=== PATIENT | male | born 1950 | race Caucasian/White ===

== ENCOUNTER 2018-01-10 10:28 | Inpatient (IN) | payer MEDICARE, OTHER ==
[~2018-01-10] VITALS: Ht 177.8 cm; Wt 71.0 kg
[~2018-01-10 10:28] MED LIST: ACIDOPHILUS100 MG PO; ASPI-1265 PO; CARB15DR51 OT; CARV-50 PO; CHOL40002 PO; CYA500T PO; CYAN100061 IM; CYCL-394 PO; FOLI-43 PO; GABA-330 PO; LANTUS SUBCUT; MAGN400C PO; MECL12.5 PO; METF500T PO; NIAC500C12 PO; NITR0.4T48 SL; OMEP-84 PO; ROSU40TA PO; TRAZ-89 PO; ZOL50T PO
[2018-01-10] MEDS ORDERED: nitroGLYCERIN 0.4mg/hour patch TD ONE (10:35)
[2018-01-10] MEDS ORDERED: aspirin 81mg tab.chew PO ONE (10:35)
[2018-01-10 10:49] LABS: BASOPHILS # (AUTO) 0.1 X10'3 (0-0.2); BASOPHILS % (AUTO) 0.8 % (0-1); EOSINOPHILS # (AUTO) 0.4 X10'3 (0-0.9); EOSINOPHILS % (AUTO) 3.1 % (0-6); HEMATOCRIT 38.9 % (42.0-52.0); HEMOGLOBIN 12.5 g/dl (14.0-17.9); LYMPHOCYTES # (AUTO) 3.4 X10'3 (1.1-4.8); LYMPHOCYTES % (AUTO) 25.7 % (21-51); MEAN CORPUSCULAR HEMOGLOBIN 25.2 PG (27.0-31.0); MEAN CORPUSCULAR VOLUME 78.6 FL (78-98); MEAN PLATELET VOLUME 11.5 FL (7.4-10.4); MONOCYTES # (AUTO) 0.5 X10'3 (0-0.9); MONOCYTES % (AUTO) 3.5 % (2-12); NEUTROPHILS # (AUTO) 8.8 X10'3 (1.8-7.7); NEUTROPHILS % (AUTO) 66.9 % (42-75); PLATELET COUNT 205 X10'3 (140-440); RED BLOOD COUNT 4.95 X10'6 (4.70-6.10); RED CELL DISTRIBUTION WIDTH 17.4 % (11.5-14.5); WHITE BLOOD COUNT 13.2 X10'3 (4.5-11.0)
[2018-01-10 11:00] LABS: D-DIMER 3.19 MG/L FEU (0-0.50); PARTIAL THROMBOPLASTIN TIME 25 SECONDS (22-32); PROTHROMBIN TIME 10.2 SECONDS (9.0-12.0)
[2018-01-10 11:01] LABS: ABG BASE EXCESS -7.2 mmol/L (-2.0-3.0); ABG HCO3 20.6 mmol/L (22.0-26.0); ABG OXYGEN SATURATION 99.3 % (95-98); ABG PCO2 (T) 48.8 mmHg (35.0-48.0); ABG PH (T) 7.237 (7.350-7.450); FCOHb 0.5 % (0.5-1.5); FMetHb 0.1 % (0.3-1.12); FO2Hb 98.7 % (94-100); MINUTE VOLUME 14 L/min; PATIENT TEMPERATURE 36.1; RESPIRATORY RATE 16 b/min; RESPIRATORY RATE (OBSERVED) 31 b/min; TIDAL VOLUME 509 mL; TOTAL HEMOGLOBIN 12.6 G/dl (14.0-18.0)
[2018-01-10 11:02] LABS: ALANINE AMINOTRANSFERASE 32 U/L (12-78); ALBUMIN 3.7 G/DL (3.4-5.0); ALBUMIN/GLOBULIN RATIO 0.8 (1.1-1.5); ALKALINE PHOSPHATASE 169 IU/L (46-116); ANION GAP 11 (8-16); ASPARTATE AMINO TRANSFERASE 31 U/L (10-37); BILIRUBIN,TOTAL 0.4 MG/DL (0.1-1.0); BLOOD UREA NITROGEN 19 MG/DL (7-18); BUN/CREATININE RATIO 12.4 (5.4-32.0); CALCIUM 9.5 MG/DL (8.5-10.1); CHLORIDE 103 MMOL/L (99-107); CREATININE 1.53 MG/DL (0.60-1.10); GLUCOSE 335 MG/DL (70-104); SODIUM 138 MMOL/L (135-145); TOTAL CARBON DIOXIDE 23.9 MMOL/L (24-32); TOTAL PROTEIN 8.3 G/DL (6.4-8.2); eGFR 45 ML/MIN
[2018-01-10] MEDS ORDERED: furosemide 40mg/4ml inj IV ONE (11:25)
[2018-01-10] MEDS ORDERED: HYDROcodone/acetaminophen 10/325mg tab PO PRN (12:10)
[2018-01-10] MEDS ORDERED: acetaminophen 325mg tablet PO PRN (12:10)
[2018-01-10] MEDS ORDERED: ondansetron/PF 4mg/2ml inj IV PRN (12:10)
[2018-01-10] MEDS ORDERED: albuterol 2.5 MG/3 ML nebule NEB PRN (12:10)
[2018-01-10] MEDS ORDERED: MESSAGE TO PHARMACY PO ONE (12:10)
[2018-01-10] MEDS ORDERED: morphine 4 MG/ML inj SYRINge IV PRN ×2 (12:10)
[2018-01-10] MEDS ORDERED: HYDROcodone/acetaminophen 5mg/325mg tablet PO PRN (12:10)
[2018-01-10] MEDS ORDERED: dextrose ORAL solution 15 GM/59 ML bottle PO PRN ×2 (12:10)
[2018-01-10] MEDS ORDERED: mag hydrox/Alum hydrox/simeth 30ml oral suspension PO PRN (12:10)
[2018-01-10] MEDS ORDERED: magnesium hydroxide 30ml (MOM) UD suspension PO PRN (12:10)
[2018-01-10] MEDS ORDERED: glucagon, human recombinant 1mg kit SUBCUT PRN (12:10)
[2018-01-10] MEDS ORDERED: dextrose 50%-water 50ml dispensing syringe IV PRN ×2 (12:10)
[2018-01-10] MEDS: nitroGLYCERIN 0.4mg/hour patch TD SCH (12:20)
[2018-01-10 12:30] LABS: ABG BASE EXCESS -3.4 mmol/L (-2.0-3.0); ABG HCO3 22.4 mmol/L (22.0-26.0); ABG OXYGEN SATURATION 98.2 % (95-98); ABG PCO2 (T) 41.1 mmHg (35.0-48.0); ABG PH (T) 7.349 (7.350-7.450); ABG PO2 (T) 131.9 mmHg (83-108); ALLEN'S TEST Positive; FCOHb 0.8 % (0.5-1.5); FMetHb 0.1 % (0.3-1.12); FO2Hb 97.3 % (94-100); MINUTE VOLUME 18 L/min; PATIENT TEMPERATURE 36.1; RESPIRATORY RATE 12 b/min; RESPIRATORY RATE (OBSERVED) 20 b/min; TIDAL VOLUME 833 mL; TOTAL HEMOGLOBIN 12.3 G/dl (14.0-18.0)
[2018-01-10 14:40] VITALS: BP 178/88
[2018-01-10 14:50] LABS: HEMOGLOBIN A1C 8.1 % (4.5-6.2)
[2018-01-10 17:10] VITALS: BP 164/89
[2018-01-10] MEDS ORDERED: enoxaparin 80mg/0.8ml syringe SUBCUT ONE (17:10)
[2018-01-10] MEDS: carVEDilol 12.5mg tablet PO SCH ×2 (17:36→19:25)
[2018-01-10 17:37] VITALS: BP 164/89
[2018-01-10] MEDS: insulin Lispro (HumaLOG) vial - multi-dose SQ SCH (18:50)
[2018-01-10 19:00] VITALS: BP 156/91
[2018-01-10] MEDS: furosemide 40mg/4ml inj IV SCH (19:22)
[2018-01-10] MEDS ORDERED: insulin glargine (Lantus) pen - multi-dose SQ SCH (21:00)
[2018-01-10 23:00] VITALS: BP 120/47
[2018-01-11 03:00] VITALS: BP 143/60
[2018-01-11 06:00] VITALS: BP 151/65
[2018-01-11 06:09] LABS: BASOPHILS % (AUTO) 0.2 % (0-1); EOSINOPHILS # (AUTO) 0.1 X10'3 (0-0.9); EOSINOPHILS % (AUTO) 2.3 % (0-6); HEMATOCRIT 31.4 % (42.0-52.0); HEMOGLOBIN 10.2 g/dl (14.0-17.9); LYMPHOCYTES # (AUTO) 1.1 X10'3 (1.1-4.8); LYMPHOCYTES % (AUTO) 17.2 % (21-51); MEAN CORPUSCULAR HEMOGLOBIN 25.2 PG (27.0-31.0); MEAN CORPUSCULAR HGB CONC 32.5 % (33.0-36.5); MEAN CORPUSCULAR VOLUME 77.7 FL (78-98); MEAN PLATELET VOLUME 11.1 FL (7.4-10.4); MONOCYTES # (AUTO) 0.3 X10'3 (0-0.9); MONOCYTES % (AUTO) 5.7 % (2-12); NEUTROPHILS # (AUTO) 4.6 X10'3 (1.8-7.7); NEUTROPHILS % (AUTO) 74.6 % (42-75); PLATELET COUNT 119 X10'3 (140-440); RED BLOOD COUNT 4.04 X10'6 (4.70-6.10); RED CELL DISTRIBUTION WIDTH 17.5 % (11.5-14.5); WHITE BLOOD COUNT 6.1 X10'3 (4.5-11.0)
[2018-01-11 06:31] LABS: ALBUMIN 3.2 G/DL (3.4-5.0); ANION GAP 8 (8-16); BLOOD UREA NITROGEN 23 MG/DL (7-18); BUN/CREATININE RATIO 15.4 (5.4-32.0); CALCIUM 9.3 MG/DL (8.5-10.1); CHLORIDE 104 MMOL/L (99-107); CREATININE 1.49 MG/DL (0.60-1.10); GLUCOSE 104 MG/DL (70-104); POTASSIUM 3.7 MMOL/L (3.5-5.1); SODIUM 139 MMOL/L (135-145); TOTAL CARBON DIOXIDE 27.3 MMOL/L (24-32); eGFR 47 ML/MIN
[2018-01-11 06:48] LABS: PLATELET ESTIMATE DECREASED
[2018-01-11 06:49] LABS: LARGE PLATELETS FEW
[2018-01-11] MEDS: furosemide 40mg/4ml inj IV SCH ×2 (08:21→20:15)
[2018-01-11] MEDS: carVEDilol 12.5mg tablet PO SCH ×2 (08:23→20:12)
[2018-01-11] MEDS: nitroGLYCERIN 0.4mg/hour patch TD SCH (08:24)
[2018-01-11] MEDS: insulin Lispro (HumaLOG) vial - multi-dose SQ SCH ×3 (08:27→18:56)
[2018-01-11 11:00] VITALS: BP 125/61
[2018-01-11] MEDS ORDERED: meclizine 12.5mg tablet PO PRN (11:30)
[2018-01-11] MEDS: enoxaparin 40mg/0.4ml syringe SUBCUT SCH (12:14)
[2018-01-11] MEDS ORDERED: POTA20TA19 PO (12:55)
[2018-01-11] MEDS ORDERED: LISI2.5T2 PO (12:55)
[2018-01-11] MEDS ORDERED: DONE10TA6 PO (12:55)
[2018-01-11] MEDS: gabapentin 400mg capsule PO SCH ×2 (13:23→20:12)
[2018-01-11 15:00] VITALS: BP 123/61
[2018-01-11 19:00] VITALS: BP 137/55
[2018-01-11] MEDS: magnesium oxide 400mg tablet PO SCH (20:12)
[2018-01-11] MEDS: lactobacillus rhamnosus 10,000 MMU CELLS/CAPSULE PO SCH (20:12)
[2018-01-11] MEDS: pantoprazole 40mg Tablet.DR PO SCH (20:28)
[2018-01-11] MEDS: insulin glargine (Lantus) pen - multi-dose SQ SCH (20:48)
[2018-01-11] MEDS ORDERED: carbamide peroxide 15ml bottle EACH EAR SCH (21:00)
[2018-01-11] MEDS: niacin 500mg timed-release capsule PO SCH (21:29)
[2018-01-11 23:00] VITALS: BP 133/69
[2018-01-11] MEDS: traZODone 50mg tablet PO PRN (23:22)
[2018-01-12 03:00] VITALS: BP 143/69
[2018-01-12 05:43] LABS: BASOPHILS % (AUTO) 0.3 % (0-1); EOSINOPHILS # (AUTO) 0.1 X10'3 (0-0.9); HEMATOCRIT 32.8 % (42.0-52.0); LYMPHOCYTES # (AUTO) 1.3 X10'3 (1.1-4.8); LYMPHOCYTES % (AUTO) 25.8 % (21-51); MEAN CORPUSCULAR HEMOGLOBIN 25.6 PG (27.0-31.0); MEAN CORPUSCULAR HGB CONC 33.4 % (33.0-36.5); MEAN CORPUSCULAR VOLUME 76.5 FL (78-98); MEAN PLATELET VOLUME 10.7 FL (7.4-10.4); MONOCYTES # (AUTO) 0.4 X10'3 (0-0.9); NEUTROPHILS # (AUTO) 3.4 X10'3 (1.8-7.7); NEUTROPHILS % (AUTO) 64.9 % (42-75); PLATELET COUNT 110 X10'3 (140-440); RED BLOOD COUNT 4.28 X10'6 (4.70-6.10); RED CELL DISTRIBUTION WIDTH 17.4 % (11.5-14.5); WHITE BLOOD COUNT 5.2 X10'3 (4.5-11.0)
[2018-01-12 06:00] VITALS: BP 126/63
[2018-01-12 06:10] LABS: ALBUMIN 3.3 G/DL (3.4-5.0); ANION GAP 10 (8-16); BLOOD UREA NITROGEN 31 MG/DL (7-18); BUN/CREATININE RATIO 18.2 (5.4-32.0); CALCIUM 9.5 MG/DL (8.5-10.1); CHLORIDE 102 MMOL/L (99-107); GLUCOSE 93 MG/DL (70-104); POTASSIUM 3.6 MMOL/L (3.5-5.1); SODIUM 141 MMOL/L (135-145); TOTAL CARBON DIOXIDE 28.8 MMOL/L (24-32); eGFR 40 ML/MIN
[2018-01-12 06:26] LABS: LARGE PLATELETS FEW; PLATELET ESTIMATE DECREASED
[2018-01-12] MEDS: carVEDilol 12.5mg tablet PO SCH ×2 (09:01→19:23)
[2018-01-12] MEDS: lactobacillus rhamnosus 10,000 MMU CELLS/CAPSULE PO SCH ×2 (09:01→19:23)
[2018-01-12] MEDS: atorvastatin 20mg tablet PO SCH (09:03)
[2018-01-12] MEDS: gabapentin 400mg capsule PO SCH ×3 (09:03→21:29)
[2018-01-12] MEDS: pantoprazole 40mg Tablet.DR PO SCH (09:03)
[2018-01-12] MEDS: magnesium oxide 400mg tablet PO SCH ×2 (09:03→19:23)
[2018-01-12] MEDS: multivitamins, therapeutics tablet PO SCH (09:04)
[2018-01-12] MEDS: sertraline 50mg tablet PO SCH (09:04)
[2018-01-12] MEDS: insulin glargine (Lantus) pen - multi-dose SQ SCH ×2 (09:09→21:21)
[2018-01-12] MEDS: enoxaparin 40mg/0.4ml syringe SUBCUT SCH (09:10)
[2018-01-12] MEDS: nitroGLYCERIN 0.4mg/hour patch TD SCH (09:11)
[2018-01-12 11:00] VITALS: BP 119/57
[2018-01-12] MEDS: insulin Lispro (HumaLOG) vial - multi-dose SQ SCH ×2 (12:49→18:59)
[2018-01-12 15:00] VITALS: BP 110/65
[2018-01-12 19:00] VITALS: BP 106/46
[2018-01-12] MEDS ORDERED: lisinopril 2.5mg tablet PO SCH (21:00)
[2018-01-12] MEDS: niacin 500mg timed-release capsule PO SCH (21:21)
[2018-01-12 23:00] VITALS: BP 141/60
[2018-01-12] MEDS: traZODone 50mg tablet PO PRN (23:20)
[2018-01-13 03:00] VITALS: BP 128/64
[2018-01-13 06:02] LABS: BASOPHILS % (AUTO) 0.3 % (0-1); EOSINOPHILS # (AUTO) 0.1 X10'3 (0-0.9); EOSINOPHILS % (AUTO) 2.4 % (0-6); HEMATOCRIT 32.4 % (42.0-52.0); HEMOGLOBIN 10.6 g/dl (14.0-17.9); LYMPHOCYTES # (AUTO) 1.1 X10'3 (1.1-4.8); LYMPHOCYTES % (AUTO) 23.8 % (21-51); MEAN CORPUSCULAR HEMOGLOBIN 25.3 PG (27.0-31.0); MEAN CORPUSCULAR HGB CONC 32.7 % (33.0-36.5); MEAN CORPUSCULAR VOLUME 77.3 FL (78-98); MEAN PLATELET VOLUME 10.9 FL (7.4-10.4); MONOCYTES # (AUTO) 0.3 X10'3 (0-0.9); MONOCYTES % (AUTO) 6.9 % (2-12); NEUTROPHILS # (AUTO) 3.2 X10'3 (1.8-7.7); NEUTROPHILS % (AUTO) 66.6 % (42-75); PLATELET COUNT 113 X10'3 (140-440); RED BLOOD COUNT 4.19 X10'6 (4.70-6.10); RED CELL DISTRIBUTION WIDTH 17.3 % (11.5-14.5); WHITE BLOOD COUNT 4.8 X10'3 (4.5-11.0)
[2018-01-13 06:10] LABS: ALBUMIN 3.1 G/DL (3.4-5.0); ANION GAP 9 (8-16); BLOOD UREA NITROGEN 36 MG/DL (7-18); BUN/CREATININE RATIO 20.2 (5.4-32.0); CALCIUM 9.3 MG/DL (8.5-10.1); CHLORIDE 101 MMOL/L (99-107); CREATININE 1.78 MG/DL (0.60-1.10); GLUCOSE 165 MG/DL (70-104); POTASSIUM 3.6 MMOL/L (3.5-5.1); SODIUM 136 MMOL/L (135-145); eGFR 38 ML/MIN
[2018-01-13 06:34] LABS: PLATELET ESTIMATE DECREASED
[2018-01-13 06:35] LABS: LARGE PLATELETS FEW
[2018-01-13 07:00] VITALS: BP 113/59
[2018-01-13] MEDS: carVEDilol 12.5mg tablet PO SCH (07:07)
[2018-01-13] MEDS: multivitamins, therapeutics tablet PO SCH (07:07)
[2018-01-13] MEDS: atorvastatin 20mg tablet PO SCH (07:07)
[2018-01-13] MEDS: magnesium oxide 400mg tablet PO SCH (07:07)
[2018-01-13] MEDS: nitroGLYCERIN 0.4mg/hour patch TD SCH (07:07)
[2018-01-13] MEDS: gabapentin 400mg capsule PO SCH ×2 (07:08→13:00)
[2018-01-13] MEDS: lactobacillus rhamnosus 10,000 MMU CELLS/CAPSULE PO SCH (07:08)
[2018-01-13] MEDS: pantoprazole 40mg Tablet.DR PO SCH (07:08)
[2018-01-13] MEDS: sertraline 50mg tablet PO SCH (07:08)
[2018-01-13] MEDS: enoxaparin 40mg/0.4ml syringe SUBCUT SCH (07:09)
[2018-01-13] MEDS: insulin glargine (Lantus) pen - multi-dose SQ SCH (07:18)
[2018-01-13] MEDS ORDERED: furosemide 20MG tablet PO SCH (08:00)
[2018-01-13] MEDS: insulin Lispro (HumaLOG) vial - multi-dose SQ SCH ×2 (08:15→13:21)
[2018-01-13] MEDS ORDERED: acetaminophen 325mg tablet PO PRN (10:55)
[2018-01-13 11:00] VITALS: BP 116/49
[2018-01-13] MEDS ORDERED: FURO20TA4 PO (11:15)
== END 2018-01-13 13:55 | disposition home or self-care (01) | DRG 291 ==
LOC: ER 10:28 → ED HOLD 12:10 → PCU 3S 14:35
PROVIDERS: ADMIT Internal Medicine; ATTEND Internal Medicine
PROC: 5A09357 Assistance with Respiratory Ventilation, Less than 24 Consecutive Hours, Continuous Positive Airway Pressure (ICD-10-PCS; principal; 2018-01-10)
DX: I13.0 Hypertensive heart and chronic kidney disease with heart failure and stage 1 through stage 4 chronic kidney disease, or unspecified chronic kidney disease (principal); I50.43 Acute on chronic combined systolic (congestive) and diastolic (congestive) heart failure; J96.02 Acute respiratory failure with hypercapnia; N17.9 Acute kidney failure, unspecified; R71.0 Precipitous drop in hematocrit; I42.9 Cardiomyopathy, unspecified; N18.9 Chronic kidney disease, unspecified; M54.2 Cervicalgia; I35.0 Nonrheumatic aortic (valve) stenosis; E11.42 Type 2 diabetes mellitus with diabetic polyneuropathy; F41.9 Anxiety disorder, unspecified; E11.51 Type 2 diabetes mellitus with diabetic peripheral angiopathy without gangrene; E11.65 Type 2 diabetes mellitus with hyperglycemia; E78.00 Pure hypercholesterolemia, unspecified; E78.5 Hyperlipidemia, unspecified; G47.00 Insomnia, unspecified; I25.10 Atherosclerotic heart disease of native coronary artery without angina pectoris; I25.2 Old myocardial infarction; K21.9 Gastro-esophageal reflux disease without esophagitis; F32.9 Major depressive disorder, single episode, unspecified; G89.29 Other chronic pain; Z95.0 Presence of cardiac pacemaker; Z95.1 Presence of aortocoronary bypass graft; Z79.899 Other long term (current) drug therapy; Z79.4 Long term (current) use of insulin; Z79.82 Long term (current) use of aspirin; Z85.820 Personal history of malignant melanoma of skin; Z86.711 Personal history of pulmonary embolism; Z87.891 Personal history of nicotine dependence; Z83.3 Family history of diabetes mellitus
CPT/HCPCS: 36415; 36600; 71045; 80048; 80053; 82803; 82948; 83036; 83880; 84484; 85018; 85025; 85379; 85610; 85730; 87070; 93005; 93306; 94640; 94660; 94760; 96374; 97116; 97162; 97530; 99291; J1650; J1815; J1940

== ENCOUNTER 2018-02-04 10:00 | Inpatient (IN) | payer MEDICARE, OTHER ==
[~2018-02-04] VITALS: Ht 167.6 cm; Wt 71.2 kg
[2018-02-04] VITALS (7 sets, daily range): BP systolic 115–155; BP diastolic 54–68
[2018-02-04] MEDS: K, MAG and/or Phos replacement - Verify level? MC SCH (08:00)
[~2018-02-04 10:00] MED LIST changes: -CARB15DR51 OT; +DONE10TA6 PO; +FURO20TA4 PO; +LISI2.5T2 PO; +POTA20TA19 PO
[2018-02-04] MEDS ORDERED: nitroGLYCERIN 0.4mg SUBLingual tab SL ONE (10:08)
[2018-02-04] MEDS: nitroGLYCERIN 0.4mg SUBLingual tab SL PRN ×2 (10:12→10:13)
[2018-02-04] MEDS: nitroGLYCERIN-Tridil 50MG/D5W 250 ML IV PRN ×4 (10:21→10:55)
[2018-02-04 10:25] LABS: BASOPHILS # (AUTO) 0.1 X10'3 (0-0.2); BASOPHILS % (AUTO) 0.4 % (0-1); EOSINOPHILS # (AUTO) 0.5 X10'3 (0-0.9); EOSINOPHILS % (AUTO) 3.1 % (0-6); HEMATOCRIT 41.3 % (42.0-52.0); HEMOGLOBIN 13.1 g/dl (14.0-17.9); LYMPHOCYTES # (AUTO) 3.9 X10'3 (1.1-4.8); MEAN CORPUSCULAR HEMOGLOBIN 25.7 PG (27.0-31.0); MEAN CORPUSCULAR HGB CONC 31.8 % (33.0-36.5); MEAN CORPUSCULAR VOLUME 80.7 FL (78-98); MEAN PLATELET VOLUME 11.6 FL (7.4-10.4); MONOCYTES # (AUTO) 0.8 X10'3 (0-0.9); MONOCYTES % (AUTO) 4.9 % (2-12); NEUTROPHILS # (AUTO) 11.1 X10'3 (1.8-7.7); NEUTROPHILS % (AUTO) 67.6 % (42-75); PLATELET COUNT 216 X10'3 (140-440); RED BLOOD COUNT 5.11 X10'6 (4.70-6.10); RED CELL DISTRIBUTION WIDTH 18.1 % (11.5-14.5); WHITE BLOOD COUNT 16.4 X10'3 (4.5-11.0)
[2018-02-04 10:35] LABS: INR 0.9 INR; PARTIAL THROMBOPLASTIN TIME 23 SECONDS (22-32); PROTHROMBIN TIME 9.6 SECONDS (9.0-12.0)
[2018-02-04 10:39] LABS: ALANINE AMINOTRANSFERASE 38 U/L (12-78); ALBUMIN 3.9 G/DL (3.4-5.0); ALBUMIN/GLOBULIN RATIO 0.8 (1.1-1.5); ALKALINE PHOSPHATASE 168 IU/L (46-116); ANION GAP 12 (8-16); ASPARTATE AMINO TRANSFERASE 43 U/L (10-37); BILIRUBIN,TOTAL 0.4 MG/DL (0.1-1.0); BLOOD UREA NITROGEN 24 MG/DL (7-18); BUN/CREATININE RATIO 14.5 (5.4-32.0); CALCIUM 9.2 MG/DL (8.5-10.1); CHLORIDE 102 MMOL/L (99-107); CREATININE 1.65 MG/DL (0.60-1.10); GLUCOSE 277 MG/DL (70-104); POTASSIUM 4.9 MMOL/L (3.5-5.1); SODIUM 137 MMOL/L (135-145); TOTAL CARBON DIOXIDE 23.5 MMOL/L (24-32); TOTAL PROTEIN 8.5 G/DL (6.4-8.2); eGFR 42 ML/MIN
[2018-02-04 10:47] LABS: MAGNESIUM 2.2 MG/DL (1.5-2.4)
[2018-02-04] MEDS ORDERED: magnesium Cl slow-release 64mg tablet PO PRN (11:35)
[2018-02-04] MEDS ORDERED: ondansetron/PF 4mg/2ml inj IV PRN (11:35)
[2018-02-04] MEDS ORDERED: Neutra Phos packet PO PRN (11:35)
[2018-02-04] MEDS ORDERED: magnesium hydroxide 30ml (MOM) UD suspension PO PRN (11:35)
[2018-02-04] MEDS ORDERED: acetaminophen 325mg tablet PO PRN (11:35)
[2018-02-04] MEDS ORDERED: sodium phosphate inj. 15 MMOL in dextrose 5%-water 150 ML IV PRN (11:35)
[2018-02-04] MEDS ORDERED: magnesium 1gm/100ml D5W IVPB 100 ML IV PRN (11:35)
[2018-02-04] MEDS ORDERED: magnesium 4gm in 100ml NS 100 ML IV PRN (11:35)
[2018-02-04] MEDS ORDERED: sodium phosphate inj. 30 MMOL in dextrose 5%-water 250 ML IV PRN (11:35)
[2018-02-04] MEDS ORDERED: potassium Cl 20 mEq SR tablet PO PRN ×2 (11:35)
[2018-02-04 13:18] LABS: CLARITY,URINE CLEAR (Clear); COLOR,URINE STRAW (Yellow); GLUCOSE, URINE 500 mg/dl (Neg); KETONES,URINE NEGATIVE (Neg); LEUKOCYTE ESTERASE ,URINE NEGATIVE (Neg); NITRITES, URINE NEGATIVE (Neg); OCCULT BLOOD,URINE SMALL (Neg); PH,URINE 5.5 (4.8-8.0); PROTEIN,URINE 100 mg/dl (Neg); UROBILINOGEN,URINE 0.2 E.U/dL (0.2-1.0)
[2018-02-04 13:19] LABS: UA COLLECTION TYPE VOIDED
[2018-02-04 13:36] LABS: BACTERIA,URINE FEW /HPF (Neg); HYALINE CASTS 0-3 /LPF (NEGATIVE); MUCUS STRANDS FEW /LPF (Neg); RBC,URINE 0-2 /HPF (0-2); SQUAMOUS EPITHELIAL CELL,UR FEW /LPF (FEW); WBC,URINE 0-4 /HPF (0-4)
[2018-02-04] MEDS: docusate sod 100mg capsule PO SCH (20:00)
[2018-02-04] MEDS: famotidine 20mg tablet PO SCH (20:29)
[2018-02-04] MEDS: sennosides/docusate sodium tablet PO SCH (20:30)
[2018-02-04] MEDS: furosemide 10 MG/1 ML 10ml inj IV SCH (20:30)
[2018-02-04] MEDS: heparin, porcine 5000 units/ml vial SQ SCH (20:30)
[2018-02-04] MEDS ORDERED: CHOL400T32 PO (20:40)
[2018-02-04] MEDS ORDERED: dextrose 50%-water 50ml dispensing syringe IV PRN ×2 (20:45)
[2018-02-04] MEDS ORDERED: glucagon, human recombinant 1mg kit SUBCUT PRN (20:45)
[2018-02-04] MEDS ORDERED: dextrose ORAL solution 15 GM/59 ML bottle PO PRN (20:45)
[2018-02-04] MEDS ORDERED: MESSAGE TO PHARMACY PO ONE (20:45)
[2018-02-04] MEDS: insulin glargine (Lantus) pen - multi-dose SQ SCH (22:15)
[2018-02-05] VITALS (23 sets, daily range): BP systolic 111–198; BP diastolic 43–104
[2018-02-05 04:38] LABS: BASOPHILS % (AUTO) 0.4 % (0-1); EOSINOPHILS # (AUTO) 0.1 X10'3 (0-0.9); EOSINOPHILS % (AUTO) 2.1 % (0-6); HEMATOCRIT 28.8 % (42.0-52.0); HEMOGLOBIN 9.2 g/dl (14.0-17.9); LYMPHOCYTES # (AUTO) 0.8 X10'3 (1.1-4.8); LYMPHOCYTES % (AUTO) 15.2 % (21-51); MEAN CORPUSCULAR HEMOGLOBIN 25.3 PG (27.0-31.0); MEAN PLATELET VOLUME 10.8 FL (7.4-10.4); MONOCYTES # (AUTO) 0.3 X10'3 (0-0.9); MONOCYTES % (AUTO) 5.1 % (2-12); NEUTROPHILS # (AUTO) 4.1 X10'3 (1.8-7.7); NEUTROPHILS % (AUTO) 77.2 % (42-75); PLATELET COUNT 113 X10'3 (140-440); RED BLOOD COUNT 3.65 X10'6 (4.70-6.10); RED CELL DISTRIBUTION WIDTH 17.8 % (11.5-14.5); WHITE BLOOD COUNT 5.4 X10'3 (4.5-11.0)
[2018-02-05 04:53] LABS: PROTHROMBIN TIME 10.5 SECONDS (9.0-12.0)
[2018-02-05 05:09] LABS: ALANINE AMINOTRANSFERASE 31 U/L (12-78); ALBUMIN/GLOBULIN RATIO 0.9 (1.1-1.5); ALKALINE PHOSPHATASE 86 IU/L (46-116); ANION GAP 4 (8-16); ASPARTATE AMINO TRANSFERASE 26 U/L (10-37); BILIRUBIN,TOTAL 0.3 MG/DL (0.1-1.0); BLOOD UREA NITROGEN 28 MG/DL (7-18); BUN/CREATININE RATIO 15.6 (5.4-32.0); CALCIUM 8.7 MG/DL (8.5-10.1); CHLORIDE 103 MMOL/L (99-107); CREATININE 1.79 MG/DL (0.60-1.10); GLUCOSE 186 MG/DL (70-104); MAGNESIUM 1.8 MG/DL (1.5-2.4); PHOSPHORUS 2.7 MG/DL (2.3-4.5); POTASSIUM 4.3 MMOL/L (3.5-5.1); SODIUM 136 MMOL/L (135-145); TOTAL CARBON DIOXIDE 29.3 MMOL/L (24-32); TOTAL PROTEIN 6.4 G/DL (6.4-8.2); eGFR 38 ML/MIN
[2018-02-05] MEDS: K, MAG and/or Phos replacement - Verify level? MC SCH (08:00)
[2018-02-05] MEDS: docusate sod 100mg capsule PO SCH ×2 (08:33→20:08)
[2018-02-05] MEDS: furosemide 10 MG/1 ML 10ml inj IV SCH (08:33)
[2018-02-05] MEDS: famotidine 20mg tablet PO SCH ×2 (08:34→20:08)
[2018-02-05] MEDS: heparin, porcine 5000 units/ml vial SQ SCH ×2 (08:34→22:35)
[2018-02-05] MEDS: acetaminophen 325mg tablet PO PRN (08:40)
[2018-02-05] MEDS: insulin Lispro (HumaLOG) vial - multi-dose SQ SCH ×2 (13:28→21:33)
[2018-02-05] MEDS: isosorbide mononitrate 30mg tab.SR.24H PO SCH (16:07)
[2018-02-05] MEDS: hydrALAZINE 25 MG tablet PO SCH (18:57)
[2018-02-05] MEDS: furosemide 20MG tablet PO SCH (20:08)
[2018-02-05] MEDS: sennosides/docusate sodium tablet PO SCH (21:00)
[2018-02-05] MEDS: insulin glargine (Lantus) pen - multi-dose SQ SCH (21:34)
[2018-02-05] MEDS ORDERED: lisinopril 2.5mg tablet PO ONE (22:20)
[2018-02-05] MEDS ORDERED: carVEDilol 12.5mg tablet PO ONE (22:20)
[2018-02-06] VITALS (19 sets, daily range): BP systolic 84–165; BP diastolic 50–85
[2018-02-06] MEDS: hydrALAZINE 25 MG tablet PO SCH ×2 (00:07→09:44)
[2018-02-06 05:39] LABS: BASOPHILS % (AUTO) 0.4 % (0-1); EOSINOPHILS # (AUTO) 0.2 X10'3 (0-0.9); EOSINOPHILS % (AUTO) 3.1 % (0-6); HEMATOCRIT 34.2 % (42.0-52.0); HEMOGLOBIN 11.4 g/dl (14.0-17.9); LYMPHOCYTES # (AUTO) 1.1 X10'3 (1.1-4.8); LYMPHOCYTES % (AUTO) 18.1 % (21-51); MEAN CORPUSCULAR HEMOGLOBIN 25.9 PG (27.0-31.0); MEAN CORPUSCULAR HGB CONC 33.3 % (33.0-36.5); MEAN CORPUSCULAR VOLUME 77.9 FL (78-98); MONOCYTES # (AUTO) 0.4 X10'3 (0-0.9); MONOCYTES % (AUTO) 6.1 % (2-12); NEUTROPHILS # (AUTO) 4.3 X10'3 (1.8-7.7); NEUTROPHILS % (AUTO) 72.3 % (42-75); PLATELET COUNT 133 X10'3 (140-440); RED BLOOD COUNT 4.39 X10'6 (4.70-6.10); RED CELL DISTRIBUTION WIDTH 17.7 % (11.5-14.5)
[2018-02-06 05:55] LABS: INR 0.9 INR; PROTHROMBIN TIME 9.8 SECONDS (9.0-12.0)
[2018-02-06 05:57] LABS: ALANINE AMINOTRANSFERASE 32 U/L (12-78); ALBUMIN 3.5 G/DL (3.4-5.0); ALBUMIN/GLOBULIN RATIO 0.9 (1.1-1.5); ALKALINE PHOSPHATASE 100 IU/L (46-116); ANION GAP 9 (8-16); ASPARTATE AMINO TRANSFERASE 30 U/L (10-37); BILIRUBIN,TOTAL 0.4 MG/DL (0.1-1.0); BLOOD UREA NITROGEN 32 MG/DL (7-18); CALCIUM 9.7 MG/DL (8.5-10.1); CHLORIDE 98 MMOL/L (99-107); CREATININE 1.68 MG/DL (0.60-1.10); GLUCOSE 159 MG/DL (70-104); MAGNESIUM 1.8 MG/DL (1.5-2.4); PHOSPHORUS 3.8 MG/DL (2.3-4.5); POTASSIUM 3.9 MMOL/L (3.5-5.1); SODIUM 136 MMOL/L (135-145); TOTAL CARBON DIOXIDE 29.4 MMOL/L (24-32); TOTAL PROTEIN 7.5 G/DL (6.4-8.2); eGFR 41 ML/MIN
[2018-02-06 07:58] LABS: PLATELET ESTIMATE DECREASED
[2018-02-06 07:59] LABS: LARGE PLATELETS FEW
[2018-02-06] MEDS: K, MAG and/or Phos replacement - Verify level? MC SCH (08:00)
[2018-02-06] MEDS: acetaminophen 325mg tablet PO PRN (09:43)
[2018-02-06] MEDS: heparin, porcine 5000 units/ml vial SQ SCH ×2 (09:43→20:50)
[2018-02-06] MEDS: famotidine 20mg tablet PO SCH ×2 (09:43→20:49)
[2018-02-06] MEDS: carVEDilol 12.5mg tablet PO SCH ×2 (09:44→22:20)
[2018-02-06] MEDS: furosemide 20MG tablet PO SCH ×2 (09:44→22:20)
[2018-02-06] MEDS: isosorbide mononitrate 30mg tab.SR.24H PO SCH (09:44)
[2018-02-06] MEDS: docusate sod 100mg capsule PO SCH ×2 (09:44→20:49)
[2018-02-06] MEDS: lisinopril 2.5mg tablet PO SCH (09:50)
[2018-02-06] MEDS: insulin Lispro (HumaLOG) vial - multi-dose SQ SCH ×3 (10:03→20:57)
[2018-02-06] MEDS ORDERED: bisacodyl 10mg suppository rectal RC PRN (11:35)
[2018-02-06] MEDS ORDERED: polyethylene glycol 3350 17gm powd pack PO PRN (11:35)
[2018-02-06] MEDS ORDERED: lactulose 20gm/30ml cup PO PRN (11:35)
[2018-02-06] MEDS ORDERED: traZODone 50mg tablet PO SCH (20:00)
[2018-02-06] MEDS: insulin glargine (Lantus) pen - multi-dose SQ SCH (20:59)
[2018-02-06] MEDS: sennosides/docusate sodium tablet PO SCH (21:00)
[2018-02-06] MEDS: traZODone 50mg tablet PO SCH (22:22)
[2018-02-07] VITALS (14 sets, daily range): BP systolic 104–158; BP diastolic 54–84
[2018-02-07 05:24] LABS: BASOPHILS % (AUTO) 0.3 % (0-1); EOSINOPHILS # (AUTO) 0.2 X10'3 (0-0.9); EOSINOPHILS % (AUTO) 2.8 % (0-6); HEMATOCRIT 36.3 % (42.0-52.0); HEMOGLOBIN 11.9 g/dl (14.0-17.9); LYMPHOCYTES # (AUTO) 1.4 X10'3 (1.1-4.8); LYMPHOCYTES % (AUTO) 22.9 % (21-51); MEAN CORPUSCULAR HEMOGLOBIN 25.6 PG (27.0-31.0); MEAN CORPUSCULAR HGB CONC 32.8 % (33.0-36.5); MEAN CORPUSCULAR VOLUME 78.2 FL (78-98); MONOCYTES # (AUTO) 0.4 X10'3 (0-0.9); NEUTROPHILS # (AUTO) 4.1 X10'3 (1.8-7.7); PLATELET COUNT 137 X10'3 (140-440); RED BLOOD COUNT 4.64 X10'6 (4.70-6.10); RED CELL DISTRIBUTION WIDTH 17.6 % (11.5-14.5); WHITE BLOOD COUNT 6.2 X10'3 (4.5-11.0)
[2018-02-07 05:52] LABS: ALANINE AMINOTRANSFERASE 29 U/L (12-78); ALBUMIN 3.3 G/DL (3.4-5.0); ALBUMIN/GLOBULIN RATIO 0.8 (1.1-1.5); ALKALINE PHOSPHATASE 93 IU/L (46-116); ANION GAP 9 (8-16); ASPARTATE AMINO TRANSFERASE 29 U/L (10-37); BILIRUBIN,TOTAL 0.4 MG/DL (0.1-1.0); BLOOD UREA NITROGEN 49 MG/DL (7-18); BUN/CREATININE RATIO 22.7 (5.4-32.0); CALCIUM 9.7 MG/DL (8.5-10.1); CHLORIDE 99 MMOL/L (99-107); CREATININE 2.16 MG/DL (0.60-1.10); GLUCOSE 100 MG/DL (70-104); MAGNESIUM 2.2 MG/DL (1.5-2.4); PHOSPHORUS 5.1 MG/DL (2.3-4.5); POTASSIUM 3.8 MMOL/L (3.5-5.1); SODIUM 137 MMOL/L (135-145); TOTAL CARBON DIOXIDE 28.7 MMOL/L (24-32); TOTAL PROTEIN 7.3 G/DL (6.4-8.2); eGFR 30 ML/MIN
[2018-02-07 07:26] LABS: LARGE PLATELETS FEW; PLATELET ESTIMATE DECREASED
[2018-02-07] MEDS ORDERED: furosemide 20MG tablet PO SCH (08:00)
[2018-02-07] MEDS: docusate sod 100mg capsule PO SCH ×2 (08:13→20:00)
[2018-02-07] MEDS: isosorbide mononitrate 30mg tab.SR.24H PO SCH (08:13)
[2018-02-07] MEDS: carVEDilol 12.5mg tablet PO SCH ×2 (08:13→20:47)
[2018-02-07] MEDS: famotidine 20mg tablet PO SCH ×2 (08:13→20:47)
[2018-02-07] MEDS: lisinopril 2.5mg tablet PO SCH (08:13)
[2018-02-07] MEDS: furosemide 20MG tablet PO SCH (08:13)
[2018-02-07] MEDS: heparin, porcine 5000 units/ml vial SQ SCH ×2 (08:14→20:47)
[2018-02-07] MEDS: insulin Lispro (HumaLOG) vial - multi-dose SQ SCH ×4 (08:31→20:46)
[2018-02-07] MEDS: K, MAG and/or Phos replacement - Verify level? MC SCH (09:56)
[2018-02-07] MEDS: dextrose ORAL solution 15 GM/59 ML bottle PO PRN ×2 (16:49→17:06)
[2018-02-07] MEDS: insulin glargine (Lantus) pen - multi-dose SQ SCH (20:46)
[2018-02-07] MEDS: sennosides/docusate sodium tablet PO SCH (20:51)
[2018-02-07] MEDS: traZODone 50mg tablet PO SCH (22:33)
[2018-02-08 02:00] VITALS: BP 123/65
[2018-02-08 06:00] VITALS: BP 129/50
[2018-02-08 06:08] LABS: BASOPHILS % (AUTO) 0.3 % (0-1); EOSINOPHILS # (AUTO) 0.1 X10'3 (0-0.9); EOSINOPHILS % (AUTO) 2.4 % (0-6); HEMATOCRIT 34.3 % (42.0-52.0); HEMOGLOBIN 11.3 g/dl (14.0-17.9); LYMPHOCYTES # (AUTO) 1.3 X10'3 (1.1-4.8); LYMPHOCYTES % (AUTO) 22.4 % (21-51); MEAN CORPUSCULAR HEMOGLOBIN 25.5 PG (27.0-31.0); MEAN CORPUSCULAR HGB CONC 32.9 % (33.0-36.5); MEAN CORPUSCULAR VOLUME 77.6 FL (78-98); MEAN PLATELET VOLUME 9.6 FL (7.4-10.4); MONOCYTES # (AUTO) 0.4 X10'3 (0-0.9); NEUTROPHILS # (AUTO) 3.9 X10'3 (1.8-7.7); NEUTROPHILS % (AUTO) 67.9 % (42-75); PLATELET COUNT 139 X10'3 (140-440); RED BLOOD COUNT 4.42 X10'6 (4.70-6.10); RED CELL DISTRIBUTION WIDTH 17.6 % (11.5-14.5); WHITE BLOOD COUNT 5.8 X10'3 (4.5-11.0)
[2018-02-08 06:23] LABS: ALANINE AMINOTRANSFERASE 32 U/L (12-78); ALBUMIN 3.2 G/DL (3.4-5.0); ALBUMIN/GLOBULIN RATIO 0.8 (1.1-1.5); ALKALINE PHOSPHATASE 88 IU/L (46-116); ANION GAP 10 (8-16); ASPARTATE AMINO TRANSFERASE 29 U/L (10-37); BILIRUBIN,TOTAL 0.3 MG/DL (0.1-1.0); BLOOD UREA NITROGEN 52 MG/DL (7-18); BUN/CREATININE RATIO 25.4 (5.4-32.0); CALCIUM 9.8 MG/DL (8.5-10.1); CHLORIDE 100 MMOL/L (99-107); CREATININE 2.05 MG/DL (0.60-1.10); GLUCOSE 150 MG/DL (70-104); MAGNESIUM 2.2 MG/DL (1.5-2.4); PHOSPHORUS 4.7 MG/DL (2.3-4.5); POTASSIUM 4.1 MMOL/L (3.5-5.1); SODIUM 138 MMOL/L (135-145); TOTAL CARBON DIOXIDE 27.7 MMOL/L (24-32); TOTAL PROTEIN 7.1 G/DL (6.4-8.2); eGFR 32 ML/MIN
[2018-02-08] MEDS: docusate sod 100mg capsule PO SCH (07:19)
[2018-02-08] MEDS: lisinopril 2.5mg tablet PO SCH (07:19)
[2018-02-08] MEDS: famotidine 20mg tablet PO SCH (07:19)
[2018-02-08] MEDS: carVEDilol 12.5mg tablet PO SCH (07:20)
[2018-02-08] MEDS: isosorbide mononitrate 30mg tab.SR.24H PO SCH (07:20)
[2018-02-08] MEDS: heparin, porcine 5000 units/ml vial SQ SCH (07:21)
[2018-02-08] MEDS: K, MAG and/or Phos replacement - Verify level? MC SCH (08:00)
[2018-02-08] MEDS ORDERED: folic acid 1mg tablet PO SCH (08:00)
[2018-02-08] MEDS ORDERED: lisinopril 2.5mg tablet PO SCH (08:00)
[2018-02-08] MEDS ORDERED: vitamin D (cholecalciferol) 1,000 unit tablet PO SCH (08:00)
[2018-02-08] MEDS ORDERED: meclizine 12.5mg tablet PO PRN (08:00)
[2018-02-08] MEDS ORDERED: aspirin 81mg tab.chew PO SCH (08:00)
[2018-02-08] MEDS ORDERED: nitroGLYCERIN 0.4mg SUBLingual tab SL PRN (08:00)
[2018-02-08] MEDS ORDERED: furosemide 20MG tablet PO SCH ×2 (08:00)
[2018-02-08] MEDS ORDERED: atorvastatin 20mg tablet PO SCH (08:00)
[2018-02-08] MEDS ORDERED: sertraline 50mg tablet PO SCH (08:00)
[2018-02-08] MEDS: insulin Lispro (HumaLOG) vial - multi-dose SQ SCH ×3 (08:41→19:14)
[2018-02-08] MEDS: gabapentin 400mg capsule PO SCH ×2 (08:43→13:21)
[2018-02-08 11:00] VITALS: BP 101/71
[2018-02-08 15:00] VITALS: BP 92/55
[2018-02-08] MEDS ORDERED: ATOR20TA66 PO (16:39)
[2018-02-08] MEDS ORDERED: ISOS30TA6 PO (16:39)
[2018-02-08] MEDS ORDERED: CARV-50 PO (16:39)
[2018-02-08] MEDS ORDERED: OMEP20TA23 PO (17:58)
[2018-02-08] MEDS ORDERED: MAGN400C PO (17:58)
[2018-02-08] MEDS ORDERED: POTA-82 PO (17:58)
[2018-02-08] MEDS ORDERED: FURO-150 PO (17:58)
[2018-02-08] MEDS ORDERED: TRAZ-218 PO (17:59)
[2018-02-08 18:30] VITALS: BP 98/51
[2018-02-08] MEDS ORDERED: carVEDilol 3.125mg tablet PO SCH (20:00)
[2018-02-08] MEDS ORDERED: magnesium oxide 400mg tablet PO SCH (20:00)
[2018-02-08] MEDS ORDERED: lactobacillus rhamnosus 10,000 MMU CELLS/CAPSULE PO SCH (20:00)
[2018-02-08] MEDS ORDERED: niacin 500mg timed-release capsule PO SCH (21:00)
[2018-02-08] MEDS ORDERED: donepezil 5mg tablet PO SCH (21:00)
[2018-02-09] MEDS ORDERED: pantoprazole 40mg Tablet.DR PO SCH (07:30)
[2018-02-26] MEDS ORDERED: ATOR80TA PO (08:59)
[2018-02-26] MEDS ORDERED: CARV6.253 PO (09:00)
[2018-02-26] MEDS ORDERED: FURO-150 PO (09:01)
[2018-02-26] MEDS ORDERED: OMEP-271 PO (09:02)
[2018-02-26] MEDS ORDERED: TRAZ-218 PO (09:03)
[2018-02-26] MEDS ORDERED: POTA20TA19 PO (09:03)
[2018-02-26] MEDS ORDERED: ISOS30TA9 PO (09:04)
[2018-02-26] MEDS ORDERED: NITR0.4T51 SL (09:09)
== END 2018-02-08 19:48 | disposition home or self-care (01) | DRG 682 ==
LOC: ER 10:00 → ED HOLD 11:32 → ICU 2S 16:28 → PCU 3S 02-07 10:18
PROC: 5A09357 Assistance with Respiratory Ventilation, Less than 24 Consecutive Hours, Continuous Positive Airway Pressure (ICD-10-PCS; principal; 2018-02-04)
DX: N17.9 Acute kidney failure, unspecified (principal); I50.33 Acute on chronic diastolic (congestive) heart failure; I13.0 Hypertensive heart and chronic kidney disease with heart failure and stage 1 through stage 4 chronic kidney disease, or unspecified chronic kidney disease; R09.02 Hypoxemia; K21.9 Gastro-esophageal reflux disease without esophagitis; N18.9 Chronic kidney disease, unspecified; G89.29 Other chronic pain; E78.00 Pure hypercholesterolemia, unspecified; E11.22 Type 2 diabetes mellitus with diabetic chronic kidney disease; I25.10 Atherosclerotic heart disease of native coronary artery without angina pectoris; I25.2 Old myocardial infarction; Z95.1 Presence of aortocoronary bypass graft; Z95.0 Presence of cardiac pacemaker; Z79.4 Long term (current) use of insulin; Z79.82 Long term (current) use of aspirin; Z79.899 Other long term (current) drug therapy; Z79.84 Long term (current) use of oral hypoglycemic drugs; Z85.820 Personal history of malignant melanoma of skin; Z86.711 Personal history of pulmonary embolism; Z83.3 Family history of diabetes mellitus
CPT/HCPCS: 36415; 71045; 80053; 81001; 82948; 83036; 83605; 83735; 83880; 84100; 84145; 84484; 85025; 85610; 85730; 86885; 86900; 86901; 87040; 87070; 93005; 94660; 94760; 96374; 96376; 97116; 97162; 97530; 99291; J1644; J1815; J1940; J3490

== ENCOUNTER 2018-05-13 10:07 | Emergency (ER) | payer MEDICARE, OTHER ==
[~2018-05-13] VITALS: Ht 167.6 cm; Wt 68.0 kg
[~2018-05-13 10:07] MED LIST changes: +ATOR80TA PO; -CARV-50 PO; +CARV6.253 PO; -CHOL40002 PO; +CHOL400T32 PO; -CYA500T PO; -CYAN100061 IM; -CYCL-394 PO; -DONE10TA6 PO; +DONE10TA7 PO; +DOPamine/D5W 400mg/250ml bag IV ONE; +FURO-150 PO; -FURO20TA4 PO; +ISOS30TA9 PO; +LIDOcaine 2% (20 mg/ml) 5ml cardiac syringe ONE; -MECL12.5 PO; -METF500T PO; -NITR0.4T48 SL; +NITR0.4T51 SL; +OMEP-271 PO; -OMEP-84 PO; -ROSU40TA PO; +TRAZ-218 PO; -TRAZ-89 PO; +amiodarone 50MG/ML inj IV ONE; +atropine 0.1mg/ml 10ml syringe ONE; +calcium chloride 100 MG/1 ML inj IV ONE; +ePHEDrine 50MG/ML INJ. ONE; +metoprolol tartrate 1mg/ml inj IV ONE; +sodium bicarbonate (8.4%) 1 mEq/ml syringe ONE
[2018-05-13] MEDS ORDERED: amiodarone/D5 360MG/200ML BAG 200 ML IV SCH (10:35)
[2018-05-13] MEDS ORDERED: DOPamine 400mg/D5W 250ml 250 ML IV SCH (11:10)
[2018-05-13 11:31] LABS: ABG BASE EXCESS -20.3 mmol/L (-2.0-3.0); ABG HCO3 11.1 mmol/L (22.0-26.0); ABG OXYGEN SATURATION 95.4 % (95-98); ABG PCO2 (T) 51.1 mmHg (35.0-48.0); ABG PH (T) 6.953 (7.350-7.450); ABG PO2 (T) 128.6 mmHg (83-108); FCOHb 0.3 % (0.5-1.5); FO2Hb 95.1 % (94-100); PEEP 5 cm H2O; RESPIRATORY RATE 16 b/min; TIDAL VOLUME 400 mL; TOTAL HEMOGLOBIN 10.1 G/dl (14.0-18.0)
== END 2018-05-13 14:50 | disposition expired ==
LOC: ER 10:07
DX: I46.9 Cardiac arrest, cause unspecified (principal); I25.10 Atherosclerotic heart disease of native coronary artery without angina pectoris; I11.0 Hypertensive heart disease with heart failure; I50.9 Heart failure, unspecified; E78.00 Pure hypercholesterolemia, unspecified; I25.2 Old myocardial infarction; K21.9 Gastro-esophageal reflux disease without esophagitis; E11.9 Type 2 diabetes mellitus without complications; G89.29 Other chronic pain; Z86.711 Personal history of pulmonary embolism; Z95.0 Presence of cardiac pacemaker; Z98.61 Coronary angioplasty status; Z79.82 Long term (current) use of aspirin; Z79.4 Long term (current) use of insulin; Z79.899 Other long term (current) drug therapy
CPT/HCPCS: 36600; 51702; 80047; 82803; 85018; 87070; 92950; 94002; 99291; 99292; J0282; J0461; J1265; J2001; J3490